=== PATIENT | male | born 1950 | race Caucasian/White ===

== ENCOUNTER 2020-05-04 14:32 | Outpatient (CLI) | payer MEDICARE, SELFPAY | END 2020-05-04 14:33 | disposition home or self-care (01) | LOC: ANHCOVIDVC 14:33 | PROVIDERS: PCP Family Medicine | DX: Z23 Encounter for immunization (principal) | CPT/HCPCS: 0001A; 91300 ==

== ENCOUNTER 2020-05-25 14:31 | Outpatient (CLI) | payer MEDICARE, SELFPAY | END 2020-05-25 14:32 | disposition home or self-care (01) | LOC: ANHCOVIDVC 14:31 | PROVIDERS: PCP Family Medicine | DX: Z23 Encounter for immunization (principal) | CPT/HCPCS: 0002A; 91300 ==

== ENCOUNTER 2024-12-14 12:36 | Emergency (ER) | payer MEDICARE, SELFPAY ==
[2024-12-14 13:04] VITALS: BP 140/58; PULSE 46; RESP 18; TEMP 36.2; O2SAT 99
--- NOTE | 2024-12-14 13:43 | PC.NURSE ---
Came up to intake desk stating I feel much better Leaving for home. Expressed to pt if he doesn't feel well again to return. Voiced understanding. Left with a steady gait
--- OUTSIDE RECORDS SUMMARY | 2024-12-14 14:12 | XMS_ITS | Encounter Summary ---
Author Organization [facility] Address [address] [place] [address] Care Team Providers Care Sales Closer Name Role Phone Simone Mckeon MD Primary Care Provider Prudencio Hamilton MD Unavailable Simone Mckeon MD Unavailable Key Caro MA Unavailable Encounter Details Date Type Department Care Team (Late Contact Info) Description 04/02/2024 [facility] Out[facility] Visit [facility] [address] [place] [address] Document, Scanned Social History Tobacco Use Types Packs/Day Years Used Date Smoking Tobacco: Never Smokeless Tobacco: Never Alcohol Use Standard Drinks/Week Comments Yes 0 (1 standard drink = 0.6 oz pur e alcohol) occasionally-all types PHQ-2 Answer Date Recorded Patient Health Questionnaire-2 Score 0 01/12/2024 Sex and Gender Information Value Date Recorded Sex Assigned at Not on file Legal Sex Male 7:20 AM RESIDENCY COORDINATOR Gender Identity Not on file Sexual Orientation Not on file Occupation Industry Job Start Date Job End Date professor Not on file Not on file Not on file documented as of this encounter Plan of Treatment Upcoming Encounters Date Type Department Care Team (Late Contact Info) Description 04/05/2025 1:30 PM RESIDENCY COORDINATOR Office Visit [facility] - Internal Medicine [address] [facility] [address] [place] [address] Simone Mckeon MD [address] [facility] [address] [place] [phone] documented as of this encounter Goals Goal Patient Goal Type Associated Problems Recent Progress Patient-Stated? Author Blood Pressure < 140/90 Blood Pressure 128/72( 025 9:03 AM CDT) No Hattie Pruitt documented as of this encounter Visit Diagnoses Not on filedocumented in this encounter Care Teams Sales Closer Relationship Specialty Start Date End Date Simone Mckeon MD [address] [place], [place] [address] [address] [place] [phone] PCP - General 05/17/08 Simone Mckeon MD [address] [place] [phone] PCP - Attributed-MSSP 03/03/21 Prudencio Hamilton MD [address] [place] [address] Orthopedic Surgery 05/14/11 Key Caro MA Care Coordination Specialist Care Management 05/20/24 05/20/24 documented as of this encounter
--- OUTSIDE RECORDS SUMMARY | 2024-12-14 14:13 | XMS_ITS | Data Portability ---
Author Organization [facility] [employer] [facility], Main Office Address [address] [place] [address] Care Team Providers Care Shipping Lead Person Name Role Phone AFUA ANDERSON Primary Care Provider Assessment Encounter Date Assessment Date Assessment LastModified by Organization Details LastModified Time 05/29/2023 05/29/2023 This note is dictated and transcribed by [employer]. Production Support Specialist variances may occur. Despite proofreading, typographical errors may occur. Occasional wrong-word or 'kxomt-x-awuo' substitutions may have occurred due to the inherent limitations of voice recording. Read the chart carefully and recognize, using context, where substitutions have occurred. Not available 05/29/2023 12:40:45 08/07/2023 08/07/2023 This note is dictated and transcribed by [employer]. Production Support Specialist variances may occur. Despite proofreading, typographical errors may occur. Occasional wrong-word or 'fiphw-p-zveo' substitutions may have occurred due to the inherent limitations of voice recording. Read the chart carefully and recognize, using context, where substitutions have occurred. Not available 08/07/2023 11:09:37 11/11/2023 11/11/2023 This note is dictated and transcribed by [employer]. Production Support Specialist variances may occur. Despite proofreading, typographical errors may occur. Occasional wrong-word or 'kipyz-q-lbey' substitutions may have occurred due to the inherent limitations of voice recording. Read the chart carefully and recognize, using context, where substitutions have occurred. Not available 11/11/2023 13:34:10 02/10/2024 02/10/2024 This note is dictated and transcribed by [employer]. Production Support Specialist variances may occur. Despite proofreading, typographical errors may occur. Occasional wrong-word or 'muwrr-i-llpc' substitutions may have occurred due to the inherent limitations of voice recording. Read the chart carefully and recognize, using context, where substitutions have occurred. [email or web address] Not available 02/17/2024 10:44:46 07/15/2024 07/15/2024 This note is dictated and transcribed by [employer]. Production Support Specialist variances may occur. Despite proofreading, typographical errors may occur. Occasional wrong-word or 'oarnz-q-jdcu' substitutions may have occurred due to the inherent limitations of voice recording. Read the chart carefully and recognize, using context, where substitutions have occurred. Not available 07/29/2024 13:20:37 Plan of Treatment Reminders Order Date Submit Date Provider Last Modified By Organization Details Last Modified Time Details Appointments None record ed. Lab None record ed. Referral None record ed. Procedures None record ed. Surgeries None record ed. Imaging None record ed. Medication Orders None record ed. Patient TargetsNo targets recorded. Patient InstructionsNo instructions recorded. Reason for Referral None Reported. Problems Name Problem SNOMED Code Status Onset Date Resolution Date Notes Provider Name and Address Organization Details Recorded Time Arthritis 1931601 Active 2022 Shonda burr [facility] 3 12:54:07 Hypertensi ve disorder 39234102 Active 2022 Shonda burr [facility] 3 12:54:21 Basal cell carcinoma of skin 943533960 Active 2022 Shonda burr [facility] 3 14:57:05 Squamous cell carcinoma of skin 209405518 Active 2022 Shonda burr [facility] 3 14:57:25 Skin eschar 767211944 Active 2022 Kris Beverly DPM [address] [facility] [place] [address], [place], [address] , [facility] 3 09:13:38 Dystrophia unguium 40483925 Active 2022 Kris Beverly DPM [address], [place], [address] , [facility] 3 09:13:42 Subungual hematoma of lesser toe 061152880 Active 2022 Kris Beverly DPM [address], [place], [address] , [facility] 3 09:14:16 Foot callus 037313656 Active 2023 Kris Beverly DPM [address], [place], [address] , [facility] 4 11:41:26 Pain in right foot 6930194786281 07 Active 2023 Krsi Beverly DPM [address], [place], [address] , [facility] 4 11:41:36 Pain in toe 600705238 Active 2023 Kris Beverly DPM [address], [place], [address] , [facility] 4 12:40:15 Unable to cut own toenails 746827113 Active 2023 Kris Beverly DPM [address], [place], [address] , [facility] 4 12:40:45 Localized adiposity 904070562 Active 2023 Kris Beverly DPM [address], [place], [address] , [facility] 4 11:10:24 Problem Notes None recorded. Procedures Surgical History Date Name Laterality Status Provider Name and Address Organization Details Recorded Time 02/10/20 24 Nail Debridement completed JEANNE Bettencourt [address], [place], [address], [facility] 02/10/2024 12:22:59 08/07/19 24 Nail Debridement completed Kris Beverly DPM [address], [place], [address], [facility] [employer] [facility] 08/07/2023 11:09:56 05/29/19 24 Nail Debridement completed Kris Beverly DPM [address], [place], [address], [facility] [employer] [facility] 05/29/2023 12:39:06 12/20/19 23 Nail Debridement completed Kris Beverly DPM [address], [place], [address], [facility] [employer] [facility] 12/19/2022 13:34:22 09/13/19 23 Nail Debridement completed Kris Beverly DPM [address], [place], [address], [facility] [employer] [facility] 09/12/2022 15:03:20 07/02/19 11 total replacement of hip completed Shonda Smith [facility] [employer] [facility] 07/31/2022 15:11:02 02/01/20 10 total replacement of hip completed Shonda Smith [facility] [employer] [facility] 07/31/2022 15:10:37 03/03/19 09 lumbar spinal fusion completed Shonda Smith [facility] [employer] [facility] 07/31/2022 15:09:04 03/03/19 03 Cholecystectomy completed Shonda Smith [facility] [employer] [facility] 07/31/2022 15:09:26 03/03/18 75 Appendectomy completed Shonda Smith [facility] [employer] [facility] 07/31/2022 15:08:38 Imaging Results None recorded. Procedure Notes None recorded. Medical Equipment None Reported. Allergies Allergen ID Allergen Name Allergen Category Reaction Reaction Severity Criticality Documentation Date Start Date Code Code System Note Provider Name and Address Organization Details Recorded Time 98740 tetracycl ine medicatio n rash Not available Not available 07/31/2022 11133 RxNorm Shonda burr [facility] 12:53:52 Medications Name Sig Start Date Stop Date Status Note LastModified by Organization Details LastModified Time carvedilol 6.25 mg tablet TAKE 1 TABLET BY MOUTH TWICE A DAY WITH MORNING AND EVENING MEAL 05/28 completed Not Available Not Available Not Available carvedilol 12.5 mg tablet 05/28 completed Not Available Not Available Not Available tizanidine 4 mg tablet TAKE 1 (ONE) TABLET BY MOUTH EVERY 8 HOURS NEEDED FOR MUSCLE SPASMS active Not Available Not Available No t Available meloxicam 15 mg tablet active Not Available Not Available Not Available ciprofloxac in 500 mg tablet TAKE 1 TABLET BY MOUTH TWICE A DAY FOR 7 DAYS active Not Available Not Available No t Available sulfamethox azole 800 mg-trimetho prim 160 mg tablet TAKE 1 TABLET BY MOUTH TWICE A DAY FOR 5 DAYS active Not Available Not Available No t Available peg-electro lyte solution 420 gram oral solution TAKE 4,000 ML BY MOUTH ONCE FOR 1 DOSE. active Not Available Not Available No t Available losartan 100 mg-hydrochl orothiazide 25 mg tablet active Not Available Not Available Not Available alprazolam 0.25 mg tablet active Not Available Not Available Not Available cephalexin 500 mg capsule TAKE 1 CAPSULE BY MOUTH TWICE A DAY WITH A MEAL UNTIL GONE active Not Available Not Available No t Available erythromyci n 5 mg/gram (0.5 %) eye ointment APPLY ONE QUARTER INCH STRIP IN EACH EYE AT BEDTIME active Not Available Not Available No t Available hydrocortis one 2.5 % topical cream APPLY ONE TO TWO TIMES DAILY TO AFFECTED AREAS FOR UP TO TWO WEEKS AT A TIME. active Not Available Not Available No t Available metoprolol succinate ER 25 mg tablet,exte nded release 24 hr TAKE 1 TABLET BY MOUTH EVERY DAY active Not Available Not Available No t Available zolpidem 10 mg tablet active Not Available Not Available No t Available methylpredn isolone 4 mg tablets in a dose pack TAKE 6 TABLETS ON DAY 1 DIRECTED ON PACKAGE AND DECREASE BY 1 TAB EACH DAY FOR A TOTAL OF 6 DAYS 05/28 completed Not Available Not Available Not Available spironolact one 50 mg tablet TAKE 1/2 TO 1 TABLET BY MOUTH ONCE DAILY active Not Available Not Available No t Available amoxicillin 875 mg-potassiu m clavulanate 125 mg tablet TAKE 1 TABLET BY MOUTH TWICE DAILY FOR 7 DAYS. 05/28 completed Not Available Not Available Not Available amlodipine 10 mg-atorvast atin 40 mg tablet active Not Available Not Available Not Available acetaminoph en active Not Available Not Available Not Available zolpidem active Not Available Not Avai lable Not Available Xanax active Not Available Not Availa ble Not Available gabapentin active Not Available Not Av ailable Not Available valsartan 320 mg-hydrochl orothiazide 25 mg tablet TAKE 1 TABLET BY MOUTH EVERY DAY active Not Available Not Available No t Available Flonase Allergy Relief active Not Available Not Available Not Available Vitals Date Recorded Body height Body mass index (BMI) Body weight Provider Name and Address Organization Details Last Updated DateTime 05/29/2023 175.26 cm 30.6 kg/m2 13962.62 g Lian Munoz [place] [employer] [facility] [employer] [facility] 05/29/2023 11:53:05 Date Recorded Body height Body mass index (BMI) Body weight Heart rate Respiratory rate Oxygen saturation Oxygen saturation in Arterial blood by Pulse oximetry Systolic And Diastolic Provider Name and Address Organization Details Last Updated DateTime 5 175.26 cm 30.4 kg/m2 84452.0 3 g 50 /min 14 /min 98 % 98 % 134/68 mm[Hg] Lian Munoz [facility] [employer] [facility] 5 12:23:48 Date Recorded Body height Body mass index (BMI) Body weight Provider Name and Address Organization Details Last Updated DateTime 08/07/2023 175.26 cm 30.6 kg/m2 36061.62 g Lian Munoz [facility] [employer] [facility] 08/07/2023 10:33:40 Date Recorded Body height Body mass index (BMI) Body weight Heart rate Oxygen saturation Oxygen saturation in Arterial blood by Pulse oximetry Provider Name and Address Organization Details Last Updated DateTime 4 175.26 cm 30.6 kg/m2 26406.0 8 g 60 /min 99 % 99 % SIENNA Raygoza [facility] [employer] [facility] 4 10:49:38 Date Recorded Body height Body mass index (BMI) Body weight Heart rate Respiratory rate Oxygen saturation Oxygen saturation in Arterial blood by Pulse oximetry Systolic And Diastolic Provider Name and Address Organization Details Last Updated DateTime 4 175.26 cm 30.4 kg/m2 49849.0 3 g 50 /min 14 /min 98 % 98 % 154/75 mm[Hg] Lian Munoz [facility] [employer] [facility] 4 12:11:07 Social History None recorded. Functional Status Question Answer Note LastModified by Organizat ion Details LastModified Time What is your level of alcohol consumption? Occasional Information not available 07/31/2022 Mental Status None recorded. Family History Relationship Description Onset Age of this Age Resolved Age Notes LastModified by Organization Details LastModified Time Unspecified Relation Arthritis [email or web address] Not available 023 14:51:07 Unspecified Relation Hypertensive disorder [email or web address] Not available 2022 14:52:04 Father Family history of malignant neoplasm COLON CANCER Not available 07/31/2022 14:53:39 Mother Family history of malignant neoplasm COLON CANCER Not available 07/31/2022 14:53:39 Medical History Condition Response ARTHRITIS Y CANCER: SPECIFY Y HYPERTENSION Y Past Encounters Encounter ID Performer Location Encounter Start Date Encounter Closed Date Diagnosis/Indication Diagnosis SNOMED-CT Code Diagnosis ICD10 Code Diagnosis IMO Codes Diagnosis Note [id number] Kris Beverly DPM [facility] Pod[facility] [place] [address] [place] [address] 09/12/2022 10:44:12 09/30/2022 15:05:43 Skin eschar 304275783 R23.4 Wound care reviewed with the patientif not healed in 5 days in officeEduc ated on signs and symptoms of infection and if present seek medical attention immediatel y Dystrophia unguium 53539 009 L60.3 Nails 1 through 10 were debrided with sharp mechanical debridemen t without incident. Nails were debrided and greater than 50% length and thickness where needed. Subungual hematoma of lesser toe 369564948 S90.221A right 5th toecontinu e conservati ve therapy if becomes loose return to office for nail avulsioncu rrently non problemati c [id number] Kris Beverly DPM [facility] Pod[facility] [place] [address] [facility] [address] [place] [address] 12/19/2022 12:18:23 12/20/2022 11:26:02 Dystrophia unguium 88930922 L60.3 Nails 1 through 10 were debrided with sharp mechanical debridemen t without incident. Nails were debrided and greater than 50% length and thickness where needed. Unable to cut own toenails 270351500 Z74.1 [id number] Kris Beverly DPM [facility] Podiatry [place] [address] [address] 03/27/2023 08:59:32 04/02/2023 08:01:50 Dystrophia unguium 53218683 L60.3 Foot callus 589762507 L8 4 Pain in right foot 34843 75177 56442 M79.363 [id number] Kris Beverly DPM [facility] [place] [address] [place] [address] 05/29/2023 11:47:27 05/29/2023 14:17:28 Dystrophia unguium 97247325 L60.3 nails debrided without incidentFo llow-up as needed every 3 4 months Pain in toe 390709111 M7 9.676 secondary to above Unable to cut own toenails 996970885 Z74.1 [id number] Kris Beverly DPM [facility] Pod[facility] [place] [address] [address] 08/07/2023 10:26:48 08/07/2023 12:28:09 Pain in right foot 4978284417 08005 M79.671 Patient understand s he is high risk for possible wounds secondary to callusing and pressurePa tient elects to continue with conservati ve therapy, denies surgery Foot callus 483203652 L8 4 continue use a pumice stone and urea lotion as neededmoni tor for wounds infection at present seek medical attention immediatel y Dystrophia unguium 65117 009 L60.3 nails debrided without incidentFo llow-up as needed every 3 4 months Localized adiposity 2704 97488 E65 thinning of the fat pad right plantar footrecomm end accommodat kat inserts and shoe gear such as new balance [id number] Kris Beverly DPM [facility] Pod[facility] [place] [address] [address] 11/11/2023 10:47:36 11/11/2023 15:00:21 Pain in right foot 3651996526 47008 M79.671 Patient understand s he is high risk for possible wounds secondary to callusing and pressurePa tient elects to continue with conservati ve therapy, denies surgery Dystrophia unguium 99179 009 L60.3 nails debrided without incidentFo llow-up as needed every 3 4 months Localized adiposity 2704 73431 E65 thinning of the fat pad right plantar footrecomm end accommodat kat inserts and shoe gear such as new balance [id number] Kris Beverly DPM [facility] Pod[facility] [address] [place] [address] 02/10/2024 11:59:58 02/27/2024 14:52:58 Dystrophia unguium 58208041 L60.3 nails debrided without incidentFo llow-up as needed every 3 4 months Unable to cut own toenails 058816571 Z74.1 [id number] Kris Beverly DPM [facility] Pod[facility] [place] [address] [place] [address] 07/15/2024 11:54:32 08/02/2024 12:22:53 Dystrophia unguium 90411441 L60.3 nails debrided without incidentFo llow-up as needed every 3-4 months Pain in toe 749987956 M7 9.676 secondary to above Health Concerns Section Related Observation LastModified by Organization Detai ls LastModified Time None Recorded Concern Status LastModified by Organization Details LastModified Time None Recorded Advance Directives Directive None Recorded Payers Insurance Date Sequence Insurance Name Policy Number Policy Talley Covered Member ID Talley Member ID Guarantor Name 07/01/2024 1 [place] (MEDICARE) Froilan Gibson [id number] Nelson Gibson 08/02/2024 2 [employer] Mommy (MEDICARE SUPPLEMENT) Nelson Gibson [id number] Nelson Gibson Notes Date Note Type Note Provider Name and Address Organization Details Recorded Time 05/29/2023 text/html . Patient is a 73-year-old male who returns for elongated painful toenails. Patient states he is unable to bend over to cut his nails and states they become long. Patient denies any open wounds or infections foot. Patient denies any other complaints. Kris Beverly DPM [address], [place], [address], [facility] 05/29/2023 12:41:00 08/07/2023 text/html . Patient is a 73-year-old male who returns the office for right foot pain to the plantar 2nd metatarsal head as well as elongated toenails. Patient states he is difficulty cutting his nails would like to have them cut. Patient has minor callus formation under the sub 2nd metatarsal head due to lack of fat pad. I did discuss several options in terms of offloading to prevent pain and pressure he states that he does have mild pain with walking. I discussed supportive shoe gear as well as accommodative insoles and once he obtains these we can make cut-out to offload the area patient denies wanting any surgery. Kris Beverly DPM [address], [place], [address], [facility] 08/07/2023 11:11:10 11/11/2023 text/html . Patient 73-year-old male who returns to the office for routine foot care. Patient states overall he is doing well he states that he has mild pain secondary to plantar fat pad atrophy which he has a callus but is not significant today. Patient states he continues supportive shoe gear and shaving the area with a pumice stone. Patient states his nails are also long and thick and he can not cut them. Patient denies any other complaints. Kris Beverly DPM [address], [place], [address], [facility] 11/11/2023 14:06:01 02/10/2024 text/html . Patient is a 74-year-old male who returns the office for routine foot care. Patient has elongated painful toenails he is unable to cut them. Patient denies any other complaints. Kris Beverly DPM [address], [place], [address], [employer] 02/17/2024 10:44:59 07/15/2024 text/html . Patient is a 74-year-old male he returns to the office for complaints of painful elongated toenails he states he is unable to cut them. Patient denies any open wounds or injury to the foot. Patient denies any other complaints and would like his nails cut. Kris Beverly DPM [address] [facility] [address], [place], [address], [employer] 07/29/2024 13:21:15
--- OUTSIDE RECORDS SUMMARY | 2024-12-14 14:13 | XMS_ITS | Encounter Summary ---
Author Organization [facility] Address [address] [place] [address] Care Team Providers Care Petroleum Inspector Supervisor Name Role Phone Simone Mckeon MD Primary Care Provider Prudencio Hamilton MD Unavailable Simone Mckeon MD Unavailable [phone] Encounter Details Date Type Department Care Team (Late st Contact Info) Description 10/28/2024 Results Follow-Up [facility] - Internal Medicine [address] [phone] Anel Ennis APRN-NAEEM [address] [place] [phone] Social History Tobacco Use Types Packs/Day Years Used Date Smoking Tobacco: Never Smokeless Tobacco: Never Alcohol Use Standard Drinks/Week Comments Yes 0 (1 standard drink = 0.6 oz pur e alcohol) occasionally-all types PHQ-2 Answer Date Recorded Patient Health Questionnaire-2 Score 0 10/26/2024 Sex and Gender Information Value Date Recorded Sex Assigned at Not on file Legal Sex Male 7:20 AM SYSTEMS INTEGRATION ANALYST Gender Identity Not on file Sexual Orientation Not on file 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 Answer Date of Assessment Author No 05/31/2024 10:59 AM Monse Manriquez RN * Is person blind or have serious difficulty seeing? Answer Date of Assessment Author No 05/31/2024 10:59 AM Monse Manriquez RN * Does person have serious difficulty walking/climbing stairs? Answer Date of Assessment Author No 05/31/2024 10:59 AM Monse Manriquez RN * Does person have difficulty dressing/bathing? Answer Date of Assessment Author No 05/31/2024 10:59 AM Monse Manriquez RN * Does person have difficulty doing errands alone? Answer Date of Assessment Author No 05/31/2024 10:59 AM Monse Manriquez RN documented as of this encounter Mental Status * Does person have difficulty concentrating/remembering/making decisions? Answer Entry Date Author No 05/31/2024 10:59 AM Monse Manriquez RN documented in this encounter Plan of Treatment Upcoming Encounters Date Type Department Care Team (Late st Contact Info) Description 04/05/2025 1:30 PM SYSTEMS INTEGRATION ANALYST Office Visit [facility] Medical [facility] - Internal Medicine [address] [place] [address] [place] [phone] Simone Mckeon MD [address] [place] [phone] documented as of this encounter Goals Goal Patient Goal Type Associated Problems Recent Progress Patient-Stated? Author Blood Pressure < 140/90 Blood Pressure 128/72( 025 9:03 AM CDT) No Hattie Pruitt documented as of this encounter Visit Diagnoses Not on filedocumented in this encounter Care Teams Petroleum Inspector Supervisor Relationship Specialty Start Date End Date Simone Mckeon MD [address] [place] [address] [address] [place] [phone] PCP - General 05/17/08 Simone Mckeon MD [address] [place] [address] [address] [place] [phone] PCP - Attributed-MSSP 1/1/22 Prudencio Hamilton MD [address] [place] [address] Orthopedic Surgery 05/14/11 documented as of this encounter
--- OUTSIDE RECORDS SUMMARY | 2024-12-14 14:13 | XMS_ITS | Clinical Summary ---
Author Organization [facility] [employer] Address [address] [facility] [place] [address] Care Team Providers Care Painter Aircraft Name Role Phone Simone Mckeon MD Primary Care Provider Prudencio Hamilton MD Unavailable Simone Mckeon MD Unavailable Source Comments [facility],non-owned Affiliates and Associated Physician Practices is amultiple site organization consisting of ambulatory clinics and hospital sitesin [place], [place], [place] and [place]. This disclosure is being madepursuant to the Care Everywhere program and may not contain all information available regarding this patient. Last updated 17.[facility] Allergies Active Allergy Reactions Criticality Noted Date Comments Tetracycline Rash Medium 03/21/2008 Medications * Be aware that medications may not be up to date on this document. Alwaysverify current medications with the patient. FISH OIL PO Take 1 Tab by mouth 2 times daily 2000 Units Active multivitamin daily (THERAGRAN) tablet Take 1 (one) tablet by mouth daily with food Active loratadine (CLARITIN) 10 MG tablet Take 1 Tab by mouth once daily as needed. 30 Tab 2 3 Active fluticasone propionate (FLONASE) 50 MCG/ACT nasal spray Use 1 spray in each nostril twice a day 48 g 1 9 Active gabapentin (Neurontin) 300 MG capsule 2 (two) capsules 3 times daily Pt reported dosage change and frequency 2 Active hydrocortisone (Hytone) 2.5 % cream APPLY TO AFFECTED AREA(S) OF FACE TWICE DAILY WHEN FLARED FOR UP TO 3 WEEKS MAX AT A TIME 3 Active fluorouracil (Efudex) 5 % cream APPLY THIN FILM TO AFFECTED AREA(S) TWICE DAILY AVOID SUN EXPOSURE. FOLLOW DIRECTIONS CAREFULLY FOR PROPER HANDLING/DISPOS AL. 4 Active zolpidem (Ambien) 10 MG tablet Take 1 (one) tablet by mouth at bedtime 90 tablet 4 Active erythromycin (Romycin) 5 MG/GM ophthalmic ointment APPLY ONE QUARTER INCH STRIP IN EACH EYE AT BEDTIME 5 Active valsartan-hydro CHLOROthiazide (Diovan HCT) 320-25 MG tablet Take 1 (one) tablet by mouth once daily 90 tablet 3 5 Active meloxicam (Mobic) 15 MG tablet Take 1 (one) tablet by mouth once daily 90 tablet 3 5 Active amLODIPine-ator vastatin (Caduet) 10-40 MG tablet Take 1 (one) tablet by mouth once daily 90 tablet 3 5 Active spironolactone (Aldactone) 50 MG tablet Take 0.5 (one-half) tablet to 1 (one) tablet by mouth once daily 90 tablet 1 5 Active metoprolol succinate XL 24hr (Toprol XL) 25 MG tablet Take 1 (one) tablet by mouth once daily 90 tablet 1 5 Active ALPRAZolam (Xanax) 0.25 MG tablet TAKE 1 TABLET AT BEDTIME 90 tablet 5 Active tiZANidine (Zanaflex) 4 MG tablet TAKE 1 TABLET EVERY 8 HOURS NEEDED FOR MUSCLE SPASMS 270 tablet 3 5 Active Hospital, Clinic, or Other Facility Administered Medication Ordered Dose Route Frequency Start Date End Date Status triamcinolone acetonide (Kenalog-40) injection 40 mgIndications:Pain of ulnar side of wrist 40 mg IX ONCE 11/15/2024 11/16/2024 Ended lidocaine PF (Xylocaine MPF) 1 % injection 1 mLIndications:Pain of ulnar side of wrist 1 mL IX ONCE 11/15/2024 11/16/2024 Ended Active Problems Problem Noted Date Diagnosed Date Squamous cell carcinoma of skin 10/07/2022 Overview (10/07/2022): Mohs surgery DAVILA (nonalcoholic steatohepatitis) 12/11/2012 Chronic insomnia 11/16/2012 HTN (hypertension) 07/04/2011 Hypertriglyceridemia 12/22/2008 Family history of malignant neoplasm of gastrointestinal tract 03/21/2008 Overview (03/21/2008): Both parents. 70s TMJ (temporomandibular joint disorder) 9 Overview (03/21/2008): Had surgical procedure. Goood results Allergic rhinitis 03/21/2008 OA (osteoarthritis) 03/21/2008 Back ache 03/21/2008 Overview (03/21/2008): L5/S1 - occ flairs Bursitis, hip 03/21/2008 Overview (03/21/2008): intermittent Anxiety Resolved Problems Problem Noted Date Diagnosed Date Resolved Date S/P appendectomy 01/23/2009 12/26/2017 Hypertension 03/21/2008 07/04/2011 S/P cholecystectomy 03/21/2008 12/27/19 18 Encounters Date Type Department Care Team Description 11/27/2024 Refill [facility] - Internal Medicine [address] [place] [phone] Simone Mckeon MD Refill Request 11/15/2024 2:40 PM CDT Office Visit [facility] Orthopedics [address] [place] [address], [address] [phone] Handy Lewis MD Pain of ulnar side of wrist (Primary Dx) 10/28/2024 Results Follow-Up [facility] - Internal Medicine [address] [place] [phone] Anel Ennis APRN-PSYCHIATRY INSTRUCTOR 10/27/2024 9:26 AM CDT - 10/27/2024 11:59 PM CDT Hospital Encounter [facility] Imaging Services - Radiology [address] [place] [phone] Simone Mckeon MD Discharge Disposition: Home or Self Care 10/27/2024 9:00 AM CDT Office Visit [facility] Internal Medicine [address] [place] [phone] Anel Ennis, JOSEPHINE-PSYCHIATRY INSTRUCTOR Injury of right wrist, initial encounter (Primary Dx); Right wrist pain 10/27/2024 Travel 09/24/2024 Refill [facility] Internal Medicine [address] [place] [phone] Simone Mckeon MD MEDICATION REFILL 09/24/2024 Refill [facility] Internal [address] [phone] Simone Mckeon MD Refill Request from Last 3 Months Immunizations Immunization Administration Dates Next Due INFLUENZA VACCINE, TRIV. (AF LURIA, FLUZONE TRIVALENT; 6MO+) (IIV3) 12/05/2010 COVID PFIZER BIVALENT 12Y+ 30mcg/0.3ML 12/13/2021 Covid Pfizer primary Monoval ent 12+ yr 0.3ml 07/04/2021 Covid Pfizer primary monoval ent 12+ yr 0.3mL Purple cap 02/07/2021 FLU VACCINE TRI IIV3 SPLIT I M (FLUVIRIN) 12/29/2012 FLU VACCINE TRI IIV3 SPLIT P F IM (FLUVIRIN) 12/29/2012 INFLUENZA VACCINE 11/07/2023,,11/01/2020,2017,11/15/2015,11/24/2013,12/29/2012,1 INFLUENZA VACCINE, ADJUVANTE D, QUADR. (FLUAD QUADRIVALENT; 65Y+) (AIIV4) 11/01/2022,11/01/2020 INFLUENZA VACCINE, HIGH-DOSE , QUADR. (FLUZONE HIGH-DOSE QUADRIVALENT; 65Y+), 0.7 ML (HD-IIV4) 12/13/2021,11/09/2019,11/07/2016 INFLUENZA VACCINE, HIGH-DOSE , TRIV. (FLUZONE HIGH-DOSE TRIVALENT; 65Y+) (HD-IIV3) 11/07/2016 INFLUENZA VACCINE, QUADR. (F LUZONE; FLULAVAL; FLUARIX; AFLURIA QUADRIVALENT; 6MO+), 0.5 ML (IIV4) 11/25/2018 INFLUENZA VACCINE, TRIV. (FL UZONE; FLULAVAL; FLUARIX; AFLURIA TRIVALENT; 6MO+), 0.5 ML (IIV3) 11/17/2014 PNEUMOCOCCAL PPSV23 05/30/2015 Pneumococcal Pcv13 Conj 06/30/2014 RSV AREXVY 60YR+ 0.5ML 11/24/2022 TDAP (7yrs+) 10/01/2021,06/30/2014 ZOSTER VACCINE, LIVE 12/18/2012 Zoster Hzv Vacc Recombinant Inj Im 01/19/2020,,03/25/2019 Family History Medical History Relation Name Comments Colon Cancer after age 50 or unknown Father Colon Cancer after age 50 or unknown Mother Relation Name Status Comments Father Mother Social History Tobacco Use Types Packs/Day Years Used Date Smoking Tobacco: Never Smokeless Tobacco: Never Tobacco Cessation:Counseling Given: Not Answered Alcohol Use Standard Drinks/Week Comments Yes 0 (1 standard drink = 0.6 oz pur e alcohol) occasionally-all types PHQ-2 Answer Date Recorded Patient Health Questionnaire-2 Score 0 11/11/2024 Sex and Gender Information Value Date Recorded Sex Assigned at Not on file Legal Sex Male 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 Gender Identity Not on file Sexual Orientation Not on file Occupation Industry Job Start Date Job End Date professor Not on file Not on file Not on file Last Filed Vital Signs Vital Sign Reading Time Taken Comments Blood Pressure 128/72 10/27/2024 9:03 AM CDT Pulse 64 10/27/2024 9:03 AM CDT Temperature 36.4 C (97.6 F) 10/27/2024 9:03 AM CDT Respiratory Rate 19 05/31/2024 11:17 AM CDT Oxygen Saturation 98% 10/27/2024 9:03 AM CDT Inhaled Oxygen Concentration - - Weight 90.3 kg (199 lb) 10/27/2024 9:03 AM CDT Height 175.3 cm (5' 9) 05/31/2024 9:12 AM CDT Body Mass Index 29.39 05/31/2024 9:12 AM CDT Plan of Treatment Upcoming Encounters Date Type Department Care Team (Late st Contact Info) Description 04/05/2025 1:30 PM REEFER ENGINEER Office Visit [facility] - Internal Medicine [address] [facility] [address] [place] [phone] Simone Mckeon MD [address] [facility] [address] [place] [phone] Health Maintenance Due Date Last Done Comments COLOGUARD (AGES 45-75) - COLON CA SCREENING 1950 CT COLONOGRAPHY - COLON CA SCREENING 1950 FIT - COLON CA SCREENING 1950 FLEX SIG - COLON CA SCREENING 1950 COVID-19 VACCINE ( season) 2024 11/24/2022, 12/13/2021, 07/04/2021, Additional history exists MEDICARE AWV 12 MONTHS 04/16/2025 04/16/2024, 04/14/2023, 03/06/2022, Additional history exists COLON MONITORING 06/01/2027 05/31/2024, , 03/22/2019, Additional history exists Colorectal Cancer Screening 06/01/2027 DTAP/TDAP/TD VACCINES (3 - Td or Tdap) 10/02/2031 10/01/2021, 06/30/2014 COLONOSCOPY - COLON CA SCREENING 05/31/2034 05/31/2024, 05/31/2024, 03/22/2019, Additional history exists PNEUMOCOCCAL VACCINE 50+ Completed 05/30/2015, 06/03 HEPATITIS C SCREENING Completed 11/08/2016 ZOSTER VACCINE Completed 01/19/2020, 11/01, 03/25/2019, Additional history exists Respiratory Syncytial Virus (RSV) Vaccine Pt: or over 60 yrs Completed 11/24/2022 DEPRESSION SCREENING Completed 04/16/2024, 04/14/2023, 03/06/2022, Additional history exists INFLUENZA VACCINE Completed 11/12/2024, , 11/01/2022, Additional history exists HEPATITIS B VACCINE Aged Out No longe r eligible based on patient's age to complete this topic HIB VACCINE Aged Out No longer eligi ble based on patient's age to complete this topic HPV VACCINE Aged Out No longer eligi ble based on patient's age to complete this topic MENINGOCOCCAL (Group B) VACCINE SHARED DECISION-MAKING Aged Out No longer eligible based on patient's age to complete this topic MENINGOCOCCAL GROUPS A/C/Y/W VACCINE Aged Out No longer eligible based on patient's age to complete this topic Goals Goal Patient Goal Type Associated Problems Recent Progress Patient-Stated? Author Blood Pressure < 140/90 Blood Pressure 128/72( 025 9:03 AM CDT) No Hattie Pruitt Procedures Procedure Name Priority Date/Time Associated Diagnosis Comments XR WRIST RIGHT 3VW OR MORE Routine 10/27/2024 10:08 AM CDT Injury of right wrist, initial encounter ENDOSCOPY, COLON, SCREENING Routine 05/31/2024 10:31 AM CDT HEPATITIS C ANTIBODY Routine 11/08/2016 11:20 AM CDT Need for hepatitis C screening test from Last 3 Months or Most Recently Relevant to Health Maintenance Results * XR Wrist Right 3Vw or More (10/27/2024 10:08 AM CDT) Anatomical Region Laterality Modality Wrist / Hand Radiographic Fauzia ging 10/27/2024 3:35 PM CDT Impressions 10/27/2024 3:36 PM CDT IMPRESSION: No evidence of acute osseous process of the right wrist. Underlying degenerative change. > Interpreting Provider: Chava Barnard MD on 10/27/2024 3:36 PM Narrative 10/27/2024 3:36 PM CDT PROCEDURE: XR WRIST RIGHT 3VW OR MORE DATE/TIME OF EXAM: 10/27/2024 10:08 AM CLINICAL INFORMATION: None relevant/not provided if blank. Indication: S69.91XA: Injury of right wrist, initial encounter Additional History: Pain COMPARISON: None. FINDINGS: Three-view exam examination of the right wrist was performed. There are subchondral cyst formation and synovial of the carpal bones most notable at the triquetrum. There is no evidence of an acute fracture or dislocation. There is normal alignment. Distal radial and ulnar appear unremarkable. Procedure Note Chava Barnard MD - 10/27/2024 PROCEDURE: XR WRIST RIGHT 3VW OR MORE DATE/TIME OF EXAM: 10/27/2024 10:08 AM CLINICAL INFORMATION: None relevant/not provided if blank. Indication: S69.91XA: Injury of right wrist, initial encounter Additional History: Pain COMPARISON: None. FINDINGS: Three-view exam examination of the right wrist was performed. There are subchondral cyst formation and synovial of the carpal bones most notableat the triquetrum. There is no evidence of an acute fracture ordislocation. There is normal alignment. Distal radial and ulnar appear unremarkable. IMPRESSION: No evidence of acute osseous process of the right wrist. Underlying degenerative change. > Interpreting Provider: Chava Barnard MD on 10/27/2024 3:36 PM Anel Ennis OPTICAL MANAGER-PSYCHIATRY INSTRUCTOR DIAGNOSTIC IMAGING ORDERABLES Final Result * ENDOSCOPY, COLON, SCREENING (05/31/2024 10:31 AM CDT) Report Endoscopy POC _ Patient Name: Nelson Gibson Procedure Date: 05/31/2024 10:31 AM Date of : 1950 Admit Type: Outpatient Age: 74 Gender: Male Attending MD: Mitch Kemp , , _ Procedure: Colonoscopy Indications: Family history of colon cancer in a first-degree relative before age 60 years Providers: Mitch Kemp (Doctor) Patient Profile: This is a 74 year old male. Refer to note in patient chart for documentation of history and physical. Referring MD: Simone Mckeon MD (Referring MD) Medicines: Monitored Anesthesia Care Complications: No immediate complications. _ Estimated Blood Loss: Estimated blood loss: none. Procedure: Pre-Anesthesia Assessment: - Prior to the procedure, a History and Physical was performed, and patient medications and allergies were reviewed. The patient's tolerance of previous anesthesia was also reviewed. The risks and benefits of the procedure and the sedation options and risks were discussed with the patient. All questions were answered, and informed consent was obtained. Prior Anticoagulants: The patient has taken no anticoagulant or antiplatelet agents. ASA Grade Assessment: II - A patient with mild systemic disease. After reviewing the risks and benefits, the patient was deemed in satisfactory condition to undergo the procedure. After I obtained informed consent, the scope was passed under direct vision. Throughout the procedure, the patient's blood pressure, pulse, and oxygen saturations were monitored continuously. The Colonoscope was introduced through the anus and advanced to the cecum, identified by appendiceal orifice and ileocecal valve. The colonoscopy was performed with ease. The patient tolerated the procedure well. The quality of the bowel preparation was fair. Findings: A polyp was found in the ascending colon. The polyp was sessile. The polyp was removed with a hot snare. Resection and retrieval were complete. A polyp was found in the transverse colon. The polyp was sessile. The polyp was removed with a cold biopsy forceps. Resection and retrieval were complete. A polyp was found in the transverse colon. The polyp was sessile. The polyp was removed with a hot snare. Resection and retrieval were complete. A polyp was found in the transverse colon. The polyp was sessile. The polyp was removed with a cold snare. Resection and retrieval were complete. A polyp was found in the descending colon. The polyp was sessile. The polyp was removed with a cold snare. Resection and retrieval were complete. The rectum and cecum appeared normal. _ Impression: - Preparation of the colon was fair. - One polyp in the ascending colon, removed with a hot snare. Resected and retrieved. - One polyp in the transverse colon, removed with a cold biopsy forceps. Resected and retrieved. - One polyp in the transverse colon, removed with a hot snare. Resected and retrieved. - One polyp in the transverse colon, removed with a cold snare. Resected and retrieved. - One polyp in the descending colon, removed with a cold snare. Resected and retrieved. - The rectum and cecum are normal. Recommendation: - Patient has a contact number available for emergencies. The signs and symptoms of potential delayed complications were discussed with the patient. Return to normal activities tomorrow. Written discharge instructions were provided to the patient. - Resume previous diet. - No aspirin, ibuprofen, naproxen, or other non-steroidal anti-inflammatory drugs for 1 week after polyp removal. - Await pathology results. - Repeat colonoscopy in 3 years for surveillance. - Telephone endoscopist for pathology results in 1 week. Procedure Code(s): --- Professional --- 82810, Colonoscopy, flexible; with removal of tumor(s), polyp(s), or other lesion(s) by snare technique 05314, 59, Colonoscopy, flexible; with biopsy, single or multiple --- Technical --- 52133, Colonoscopy, flexible; with removal of tumor(s), polyp(s), or other lesion(s) by snare technique 08050, 59, Colonoscopy, flexible; with biopsy, single or multiple Diagnosis Code(s): --- Professional --- D12.2, Benign neoplasm of ascending colon D12.3, Benign neoplasm of transverse colon (hepatic flexure or splenic flexure) D12.4, Benign neoplasm of descending colon Z80.0, Family history of malignant neoplasm of digestive organs --- Technical --- D12.2, Benign neoplasm of ascending colon D12.3, Benign neoplasm of transverse colon (hepatic flexure or splenic flexure) D12.4, Benign neoplasm of descending colon Z80.0, Family history of malignant neoplasm of digestive organs CPT copyright 2020 [employer]. All rights reserved. The codes documented in this report are preliminary and upon crane operator review may be revised to meet current compliance requirements. ____ Mitch Kemp, 05/31/2024 10:59:10 AM Number of Addenda: 0 Note Initiated On: 05/31/2024 10:31 AM [facility] 05/31/2024 10:3 1 AM CDT us Mitch Kemp MD GI PROCEDURE ORDERABLES E dited Result - Final [facility] * HEPATITIS C ANTIBODY (11/08/2016 11:20 AM CDT) Hepatitis C Antibody Non Reactive Non Reactive [facility] ACCOUNT BILL Comment: Non Reactive - Antibodies to Hepatitis C virus (HCV) were no t detected, result does not exclude early acute HCV infection. FASTING Blood BLOOD SPECIMEN / Unknown 11/08/2016 11:20 AM CDT 11/08/2016 Narrative Resulting Agency Comment [address] [phone] us Simone Mckeon MD LAB - CHEMISTRY ORDERABLES Fi nal Result [facility] ACCOUNT BILL [id number] [place] [address] from Last 3 Months or Most Recently Relevant to Health Maintenance Insurance MEDICARE [facility] [email or web address] INSURANCE Cod[employer] Advance Directives Documents on File Type Date Recorded Patient Ear Mold Laboratory Technician Expl anation Adv Directive/Living Will/POA 03/13/2021 * FULL RESUSCITATION (Latest Code Status on File) Date Activated Date Inactivated Comments 07/19/2011 11:20 AM 07/24/2011 3:13 AM * FULL RESUSCITATION Date Activated Date Inactivated Comments 02/08/2011 1:08 PM 07/19/2011 11:20 AM * FULL RESUSCITATION Date Activated Date Inactivated Comments 02/06/2011 12:32 PM 02/08/2011 1:08 PM Care Teams Painter Aircraft Relationship Specialty Start Date End Date Simone Mckeon MD [address] [place] [address] [place] [phone] PCP - General 05/17/08 Simone Mckeon MD [address] [place] [address] [place] [address] [place] [phone] PCP - Attributed-MSSP 03/03/21 Prudencio Hamilton MD [address] [place] [address] Orthopedic Surgery 05/14/11
--- OUTSIDE RECORDS SUMMARY | 2024-12-14 14:13 | XMS_ITS | Clinical Summary ---
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
--- OUTSIDE RECORDS SUMMARY | 2024-12-14 14:13 | XMS_ITS | Encounter Summary ---
Author Organization [facility] Address 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 Gender Identity Not on file Sexual Orientation Not on file documented as of this encounter Plan of Treatment Not on file documented as of this encounter Procedures Procedure Name Priority Date/Time Associated Diagnosis Comments XR LUMBAR SPINE 2 OR 3 VW Routine 05/27/2008 2:49 PM CDT documented in this encounter Results * XR LUMBAR SPINE 2 OR 3 VW (05/27/2008 2:49 PM CDT) Anatomical Region Laterality Modality Spine Other 05/27/2008 2:49 PM CDT Narrative 05/30/2008 7:36 AM CDT [address] [address] Admit Date: 05/27/2008 KAVON GIBSON Sex: M Admit Prov: CHEKO ARMSTRONG Date: 1950 Primary Care Prov: CMRN: [id number] Room: [facility] SSN: [id number] IMAGING SERVICES Ordering Prov: N/A Accession Number: [id number] Interpretation LUMBAR SPINE, PA AND LATERAL, 05/27/2008 Clinical History: Low back pain. Findings: The vertebral bodies are normally aligned and there is no fracture, subluxation or bony destructive lesion. The disc spaces are maintained but there is mild endplate spurring at L3-L4 and L4-L5. There is facet sclerosis at multiple levels. The sacroiliac joints are within normal limits. Impression: Multilevel degenerative changes. . Dictated by: DANYA SYED 05/27/2008 15:26 Electronically signed by: DANYA SYED 05/30/2008 07:34 Transcribed: 05/27/2008 19:23 SJ Procedure Note Danya Syed MD - 05/30/2008 [facility] [address] [place], [place] [address] Admit Date: 05/27/2008 KAVON GIBSON Sex: M Admit Prov: CHEKO ARMSTRONG Date:1950 Primary Care Prov: CMRN: [id number] Room: [facility] SSN: [id number] IMAGING SERVICES Ordering Prov: N/A Interpretation LUMBAR SPINE, PA AND LATERAL, 05/27/2008 Clinical History: Low back pain. Findings: The vertebral bodies are normally aligned and there is no fracture, subluxation or bony destructive lesion. The disc spacesare maintained but there is mild endplate spurring at L3-L4 and L4-L5.There is facet sclerosis at multiple levels. The sacroiliac joints are withinnormal limits. Impression: Multilevel degenerative changes. . Dictated by: DANYA SYED 05/27/2008 15:26 Electronically signed by: DANYA SYED 05/30/2008 07:34 Transcribed: 05/27/2008 19:23 SJ Cheko Armstrong MD DIAGNOSTIC IMAGING ORDERABLES Final Result documented in this encounter Visit Diagnoses Not on filedocumented in this encounter
--- OUTSIDE RECORDS SUMMARY | 2024-12-14 16:03 | XMS_ITS | Clinical Summary ---
Author Organization [facility] [employer] Address [address] [facility] [place] [address] Care Team Providers Care Cisco Administrator Name Role Phone Simone Mckeon MD Primary Care Provider [phone] Prudencio Hamilton MD Unavailable Simone Mckeon MD Unavailable [phone] Source Comments [facility],non-owned Affiliates and Associated Physician Practices is amultiple site organization consisting of ambulatory clinics and hospital sitesin [place], [place], [place] and [place]. This disclosure is being madepursuant to the Care Everywhere program and may not contain all information available regarding this patient. Last updated 17.[facility] Allergies Active Allergy Reactions Criticality Noted Date [...] Type Department Care Team Description 11/27/2024 Refill [facility] - Internal Medicine [address] [place] [phone] Simone Mckeon MD Refill Request 11/15/2024 2:40 PM CDT Office Visit [facility] Orthopedics [address] [place] [address], [address] [address] Handy Lewis MD Pain of ulnar side of wrist (Primary Dx) 10/28/2024 Results Follow-Up [facility] - Internal Medicine [address] [place] [phone] Anel Ennis APRN-SECURITY POLICE OFFICER 10/27/2024 9:26 AM CDT - 10/27/2024 11:59 PM CDT Hospital Encounter [facility] Imaging Services - Radiology [address] [place] [address] Simone Mckeon MD Discharge Disposition: Home or Self Care 10/27/2024 9:00 AM CDT Office Visit [facility] Internal Medicine [address] [place] [phone] Anel Ennis, JOSEPHINE-SECURITY POLICE OFFICER Injury of right wrist, initial encounter (Primary Dx); Right wrist pain 10/27/2024 Travel 09/24/2024 Refill [facility] Internal Medicine [address] [place] [phone] Simone Mckeon MD MEDICATION REFILL 09/24/2024 Refill [facility] Internal [address] [address] Simone Mckeon MD Refill Request from Last [...] on file Legal Sex Male 7:20 AM THREAD CHECKER Gender Identity Not on file Sexual Orientation [...] st Contact Info) Description 04/05/2025 1:30 PM THREAD CHECKER Office Visit [facility] - Internal Medicine [address] [facility] [address] [place] [address] Simone Mckeon MD [address] [facility] [address] [place] [address] Health Maintenance Due Date Last [...] MD on 10/27/2024 3:36 PM Anel Ennis MANAGER COMBINATION-SECURITY POLICE OFFICER DIAGNOSTIC IMAGING ORDERABLES Final Result * ENDOSCOPY, [...] 1 week. Procedure Code(s): --- Professional --- 23418, Colonoscopy, flexible; with removal of tumor(s), polyp(s), or other lesion(s) by snare technique 75922, 59, Colonoscopy, flexible; with biopsy, single or multiple --- Technical --- 56593, Colonoscopy, flexible; with removal of tumor(s), polyp(s), or other lesion(s) by snare technique 39631, 59, Colonoscopy, flexible; with biopsy, single or [...] neoplasm of digestive organs CPT copyright 2020 [employer]. All rights reserved. The codes documented in this report are preliminary and upon tobacco sprayer review may be revised to meet current compliance requirements. ____ Mitch Kemp, 05/31/2024 10:59:10 AM Number of Addenda: 0 Note Initiated On: 05/31/2024 10:31 AM [facility] 05/31/2024 10:3 1 AM CDT us Mitch Kemp MD GI PROCEDURE ORDERABLES E dited Result - Final [facility] * HEPATITIS C ANTIBODY (11/08/2016 11:20 AM CDT) Hepatitis C Antibody Non Reactive Non Reactive [facility] ACCOUNT BILL Comment: Non Reactive - Antibodies to Hepatitis C virus (HCV) were no t detected, result does not exclude early acute HCV infection. FASTING Blood BLOOD SPECIMEN / Unknown 11/08/2016 11:20 AM CDT 11/08/2016 Narrative Resulting Agency Comment [address] [phone] us Simone Mckeon MD LAB - CHEMISTRY ORDERABLES Fi nal Result [facility] ACCOUNT BILL [address] [place] [address] from Last 3 Months or Most Recently Relevant to Health Maintenance Insurance MEDICARE [facility] [employer] INSURANCE [employer] Advance Directives Documents on File Type Date Recorded Patient Shower Room Attendant Expl anation Adv Directive/Living Will/POA 03/13/2021 * FULL RESUSCITATION (Latest Code Status on File) Date Activated Date Inactivated Comments 07/19/2011 11:20 AM 07/24/2011 3:13 AM * FULL RESUSCITATION Date Activated Date Inactivated Comments 02/08/2011 1:08 PM 07/19/2011 11:20 AM * FULL RESUSCITATION Date Activated Date Inactivated Comments 02/06/2011 12:32 PM 02/08/2011 1:08 PM Care Teams Cisco Administrator Relationship Specialty Start Date End Date Simone Mckeon MD [address] [place] [address] [place] [phone] PCP - General 05/17/08 Simone Mckeon MD [address] [place] [address] [place] [address] [place] [phone] PCP - Attributed-MSSP 03/03/21 Prudencio Hamilton MD [address] [place] [address] Orthopedic Surgery 05/14/11
--- OUTSIDE RECORDS SUMMARY | 2024-12-14 16:03 | XMS_ITS | Encounter Summary ---
Author Organization [facility] Address 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 [place], [place] [address] Admit Date: 05/27/2008 KAVON GIBSON Sex: M Admit Prov: CHEKO ARMSTRONG Date:1950 Primary Care Prov: CMRN: [id number] Room: [facility] SSN: [id number] IMAGING SERVICES Ordering Prov: N/A Interpretation LUMBAR [...]
--- OUTSIDE RECORDS SUMMARY | 2024-12-14 16:03 | XMS_ITS | Encounter Summary ---
Author Organization [facility] Address [address] [place] [address] Care Team Providers Care Airline Ticket Agent Name Role Phone Simone Mckeon MD Primary Care Provider Prudencio Hamilton MD Unavailable Simone Mckeon MD Unavailable Encounter Details Date Type Department Care Team (Late st Contact Info) Description 10/28/2024 Results Follow-Up [facility] - Internal Medicine [address] [phone] Anel Ennis APRN-NAEEM [address] [place] [address] Social History Tobacco Use Types Packs/Day Years Used Date Smoking Tobacco: Never Smokeless Tobacco: Never Alcohol Use Standard Drinks/Week Comments Yes 0 (1 standard drink = 0.6 oz pur e alcohol) occasionally-all types PHQ-2 Answer Date Recorded Patient Health Questionnaire-2 Score 0 10/26/2024 Sex and Gender Information Value Date Recorded Sex Assigned at Not on file Legal Sex Male 7:20 AM PRE OWNED SALES CONSULTANT Gender Identity Not on file Sexual Orientation [...] st Contact Info) Description 04/05/2025 1:30 PM PRE OWNED SALES CONSULTANT Office Visit [facility] - Internal Medicine [address] [place] [address] [place] [phone] Simone Mckeon MD [address] [place] [phone] documented as of this encounter Goals Goal Patient Goal Type Associated Problems Recent Progress Patient-Stated? Author Blood Pressure < 140/90 Blood Pressure 128/72( 025 9:03 AM CDT) No Hattie Pruitt documented as of this encounter Visit Diagnoses Not on filedocumented in this encounter Care Teams Airline Ticket Agent Relationship Specialty Start Date End Date Simone Mckeon MD [address] [place] [address] [address] [place] [address] PCP - General 05/17/08 Simone Mckeon MD [address] [place] [address] [address] [place] [address] PCP - Attributed-MSSP 1/1/22 Prudencio Hamilton MD [address] [place] [address] Orthopedic Surgery 05/14/11 documented as of this encounter
--- OUTSIDE RECORDS SUMMARY | 2024-12-14 16:03 | XMS_ITS | Clinical Summary ---
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
--- OUTSIDE RECORDS SUMMARY | 2024-12-14 16:03 | XMS_ITS | Encounter Summary ---
Author Organization [facility] Address [address] [facility] [place] [address] Care Team Providers Care Neuro Intensivist Physician Name Role Phone Simone Mckeon MD Primary Care Provider Prudencio Hamilton MD Unavailable Simone Mckeon MD Unavailable [phone] Key Caro MA Unavailable [phone] Encounter Details Date Type Department Care Team (Late Contact Info) Description 04/02/2024 [facility] Outpatient Visit [facility] [address] [place] [address] Document, Scanned Social History Tobacco Use Types Packs/Day Years Used Date Smoking Tobacco: Never Smokeless Tobacco: Never Alcohol Use Standard Drinks/Week Comments Yes 0 (1 standard drink = 0.6 oz pur e alcohol) occasionally-all types PHQ-2 Answer Date Recorded Patient Health Questionnaire-2 Score 0 01/12/2024 Sex and Gender Information Value Date Recorded Sex Assigned at Not on file Legal Sex Male 7:20 AM MANAGER DESKTOP Gender Identity Not on file Sexual Orientation Not on file 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 Author Blood Pressure < 140/90 Blood Pressure 128/72( 025 9:03 AM CDT) No Hattie Pruitt documented as of this encounter Visit Diagnoses Not on filedocumented in this encounter Care Teams Neuro Intensivist Physician Relationship Specialty Start Date End Date Simone Mckeon MD [address] [place], [place] [id number] [address] [place] [phone] PCP - General 05/17/08 Simone Mckeon MD [address] [place] [phone] PCP - Attributed-MSSP 03/03/21 Prudencio Hamilton MD [address] [place] [address] Orthopedic Surgery 05/14/11 Key Caro MA Care Coordination Specialist Care Management 05/20/24 05/20/24 documented as of this encounter
== END 2024-12-14 14:42 | disposition left against medical advice (07) ==
LOC: ANHED 14:04
DX: R10.10 Upper abdominal pain, unspecified (principal)
CPT/HCPCS: 99199